=== PATIENT | male | born 1960 | race Caucasian/White ===

== ENCOUNTER → 2016-06-27 | Outpatient (CLI) | payer OTHER ==
[~2016-06-27] MED LIST: ASPI-232 PO; ATEN-171 PO; ATOR10TA88 PO; LISI40TA PO; SILD100T PO
[2016-06-27 12:54] LABS: BLOOD UREA NITROGEN 22 mg/dl (7-18); BUN/CREATININE RATIO 19.7 (10-20); CALCIUM 8.8 mg/dl (8.5-10.1); CARBON DIOXIDE 26 mmol/L (21-32); CHLORIDE 106 mmol/L (98-107); GLUCOSE 116 mg/dl (70-99); POTASSIUM 3.4 mmol/L (3.5-5.1); SODIUM 142 mmol/L (136-145)
[2016-06-27 12:59] LABS: CHOLESTEROL 178 mg/dl (0-200); CHOLESTEROL/HDL RATIO 4.9; HDL CHOLESTEROL 36 mg/dl; LDL CHOLESTEROL CALCULATED 113 mg/dl; TRIGLYCERIDES 144 mg/dl (0-150); VERY LOW DENSITY LIPOPROT CALC 29 mg/dl
[2016-06-27 13:35] LABS: ESTIMATED AVERAGE GLUCOSE 108 mg/dl; HA1C FLAG Normal (Normal)
== END | disposition home or self-care (01) ==
LOC: C.LABPBG 07:43
PROVIDERS: ATTEND Internal Medicine Geriatric Medicine
DX: I10 Essential (primary) hypertension (principal); E78.5 Hyperlipidemia, unspecified; M19.90 Unspecified osteoarthritis, unspecified site; M84.30XA Stress fracture, unspecified site, initial encounter for fracture; X58.XXXA Exposure to other specified factors, initial encounter

== ENCOUNTER → 2016-08-19 | Outpatient (CLI) | payer OTHER ==
[~2016-08-19] MED LIST changes: +ATOR10TA82 PO; -ATOR10TA88 PO
== END | disposition home or self-care (01) ==
LOC: C.LABPBG 09:51
PROVIDERS: ATTEND Urology
DX: R97.20 Elevated prostate specific antigen [PSA] (principal)

== ENCOUNTER → 2016-10-06 | Outpatient (CLI) | payer OTHER | END | disposition home or self-care (01) | LOC: C.PATHSPEC 17:48 | PROVIDERS: ATTEND Urology | DX: R97.20 Elevated prostate specific antigen [PSA] (principal) ==

== ENCOUNTER → 2016-10-23 | Outpatient (CLI) | payer OTHER ==
[~2016-10-23] MED LIST changes: -ATOR10TA82 PO; +ATOR10TA88 PO; +OPTIRAY 320 IV PRN
--- NOTE | 2016-10-23 12:40 | DIAGNOSTIC IMAGING REPORT ---
ABDOMEN AND PELVIS CT WITH IV CONTRAST CT DOSE: 669.81 mGy.cm HISTORY: Prostate carcinoma PROSTATE CANCER TECHNIQUE: Multiaxial CT images of the abdomen and pelvis were performed following the use of intravenous contrast. COMPARISON STUDY: None. FINDINGS: Lung bases are clear. Minimal scattered atelectatic change left base. There is been pancreas are uniform. Mild cortical scarring inferior pole right kidney. No significant space-occupying renal lesions. Minimal atherosclerotic change abdominal aorta. No evidence for aneurysm. No significant abdominal pelvic or inguinal adenopathy. Bowel pattern is remarkable for mild chronic colonic diverticulosis. There is no evidence for acute diverticulitis. Bladder is midline. Single regions are unremarkable. The osseous structures are intact throughout. IMPRESSION: 1. No evidence for metastatic disease. 2. Mild chronic colonic diverticulosis. Electronically signed by: Billy Bella M.D. 10/23/2016 12:39 PM Dictated Date/Time: 10/23/2016 12:35 PM
--- NOTE | 2016-10-23 15:30 | DIAGNOSTIC IMAGING REPORT ---
WHOLE-BODY NUCLEAR BONE SCAN CLINICAL HISTORY: Prostate cancer. COMPARISON STUDY: Abdominal CT dated 10/23/2016.. TECHNIQUE: Three hours following the IV administration of 92 mCi of technetium 99m MDP, whole body nuclear bone scan was performed in the anterior and posterior projections. FINDINGS: There is no abnormal osseous tracer deposition identified typical in appearance for bony metastatic disease. Typically degenerative uptake is identified in the shoulders, knees, ankles, and feet. Low-level degenerative activity is also seen in the cervical spine. There is mild thoracolumbar scoliosis. There is expected excreted activity within the renal collecting system and bladder. IMPRESSION: There is no abnormal tracer deposition identified typical in appearance for bony metastatic disease. Electronically signed by: Rafael Patel M.D. 10/23/2016 3:28 PM Dictated Date/Time: 10/23/2016 3:27 PM
== END | disposition home or self-care (01) ==
LOC: C.NUCL 11:36
PROVIDERS: ATTEND Urology
DX: C61 Malignant neoplasm of prostate (principal)

== ENCOUNTER → 2017-01-26 | Outpatient (CLI) | payer OTHER ==
[~2017-01-26] MED LIST changes: -OPTIRAY 320 IV PRN
== END | disposition home or self-care (01) ==
LOC: C.LABPBG 08:20
PROVIDERS: ATTEND Nurse Practitioner Family
DX: C61 Malignant neoplasm of prostate (principal)

== ENCOUNTER → 2017-04-13 | Outpatient (CLI) | payer OTHER ==
[~2017-04-13] MED LIST changes: +ATOR10TA82 PO; -ATOR10TA88 PO
== END | disposition home or self-care (01) ==
LOC: C.LABPBG 08:07
PROVIDERS: ATTEND Urology
DX: C61 Malignant neoplasm of prostate (principal)

== ENCOUNTER → 2017-07-29 | Outpatient (CLI) | payer OTHER ==
[2017-07-29 13:14] LABS: BASO % 0.5 %; BASO ABS # 0.03 K/uL (0-0.2); EOS % 2.2 %; EOS ABS # 0.13 K/uL (0-0.5); HEMATOCRIT 43.6 % (42-52); HEMOGLOBIN 14.7 g/dL (14.0-18.0); IG# 0.03 K/uL (0.00-0.02); LYMPH ABS # 1.86 K/uL (1.2-3.4); MEAN CORPUSCULAR HGB CONC 33.7 g/dl (32-36); MEAN PLATELET VOLUME 10.2 fL (7.4-10.4); MONO % 4.6 %; MONO ABS # 0.27 K/uL (0.11-0.59); NEUT % 60.2 %; NEUT ABS # 3.49 K/uL (1.4-6.5); PLATELET COUNT 234 K/uL (130-400); RED CELL DISTRIBUTION WIDTH CV 12.9 % (11.5-14.5); RED CELL DISTRIBUTION WIDTH SD 41.6 fL (36.4-46.3); WHITE BLOOD COUNT 5.81 K/uL (4.8-10.8)
[2017-07-29 13:54] LABS: BLOOD UREA NITROGEN 13 mg/dl (7-18); CALCIUM 8.5 mg/dl (8.5-10.1); CARBON DIOXIDE 25 mmol/L (21-32); CREATININE 0.93 mg/dl (0.60-1.40); GLUCOSE 120 mg/dl (70-99); POTASSIUM 3.5 mmol/L (3.5-5.1); SODIUM 140 mmol/L (136-145)
[2017-07-29 13:57] LABS: CHOLESTEROL 159 mg/dl (0-200); LDL CHOLESTEROL CALCULATED 99 mg/dl
== END | disposition home or self-care (01) ==
LOC: C.LABPBG 07:48
PROVIDERS: ATTEND Urology
DX: Z00.00 Encounter for general adult medical examination without abnormal findings (principal); I10 Essential (primary) hypertension; E78.5 Hyperlipidemia, unspecified; C61 Malignant neoplasm of prostate